=== PATIENT | female | born 1940 | race Caucasian/White ===

== ENCOUNTER → 2019-06-23 | Outpatient (CLI) | payer MEDICARE, OTHER ==
--- NOTE | 2019-06-23 15:18 | Diagnostic Imaging Report ---
CLINICAL INDICATION: Patient with degenerative disc disease. Exam: MRI of the lumbar spine performed without IV contrast. Sagittal T2, sagittal T1, sagittal T2 fat-sat, and axial T2. Comparison: None. FINDINGS: There is no acute lumbar spine fracture. There is small intraosseous hemangioma seen involving the T12 vertebra. There is hypertrophic spurs involving the lumbar spine and facet arthropathy. The visualized portions of the distal thoracic spinal cord, conus medullaris, and cauda equina nerve roots are unremarkable. The conus medullaris tip is seen at the L1-L2 intervertebral level. There is no significant paraspinal soft tissue abnormality. L1-L2: There is very subtle grade 1 retrolisthesis of L1 on L2. There is diffuse disc bulge with moderate loss of intervertebral disc height and chronic Schmorl's nodes. There is hypertrophic anterior disc spurs. There is mild bilateral facet arthropathy. There is minimal impression upon the thecal sac anteriorly. There is moderate right neural foramen narrowing and no significant left neural foramen narrowing. L2-L3: There is mild diffuse disc bulge with moderate right facet arthropathy and mild left facet arthropathy. There is mild ligamentum flavum buckling. There is no significant central canal narrowing. There is moderate bilateral neural foramen narrowing. L3-L4: There is diffuse disc bulge with disc spurs extending into the foraminal regions bilaterally. There is moderate to severe bilateral neural foramen narrowing. There is mild central canal narrowing with moderate bilateral facet arthropathy and ligamentum flavum buckling. L4-L5: There is a diffuse disc bulge with moderate loss of intervertebral disc height and moderate bilateral facet arthropathy and ligamentum flavum buckling. There is mild central canal narrowing. There is mild to moderate right neural foramen narrowing and moderate left neural foramen narrowing. L5-S1: There is moderate bilateral facet arthropathy/hypertrophy. There is diffuse disc bulge and mild loss of intervertebral disc height. There is mild bilateral neural foramen narrowing. There is no significant central canal narrowing. IMPRESSION: 1: There is multilevel lumbar spine degenerative disease, as described above. 2: There is subtle grade 1 retrolisthesis of L1 on L2. Dictated by: Dictated on workstation # [id number]
== END ==
LOC: RAD 13:38
PROVIDERS: ATTEND Nurse Practitioner Family
DX: M47.816 Spondylosis without myelopathy or radiculopathy, lumbar region (principal); M51.37 Other intervertebral disc degeneration, lumbosacral region; M43.16 Spondylolisthesis, lumbar region
CPT/HCPCS: 72148

== ENCOUNTER → 2020-11-29 | Outpatient (CLI) | payer MEDICARE, OTHER ==
--- NOTE | 2020-11-29 16:42 | Diagnostic Imaging Report ---
PROCEDURE: MRI lumbar spine. TECHNIQUE: Multiplanar, multisequence MRI of the lumbar spine was performed without contrast. INDICATION: Chronic low back pain. COMPARISON: Lumbar spine MRI from 06/23/2019. FINDINGS: No spondylolisthesis in the lumbar spine. Mild leftward curvature in the upper lumbar spine is unchanged. No fracture or marrow replacing process. No sacral insufficiency fracture or features of advanced interspinous degenerative change. Distal thoracic cord is normal in appearance. Mild fatty atrophy in the paravertebral musculature is similar to prior examination and likely from disuse. No concerning abnormality in the retroperitoneum. L1-L2: Diffuse disc bulge with loss of intervertebral height is unchanged. Mild bilateral facet osteoarthritis is also unchanged. No spinal stenosis. Moderate right neuroforaminal narrowing is unchanged. L2-L3: Diffuse disc bulge with intervertebral height loss is stable in appearance. Mild ligamentum flavum hypertrophy is similar. No spinal stenosis. Ovbg-rq-[id number] bilateral foraminal narrowing is unchanged. L3-L4: Diffuse disc bulge with facet osteoarthritis and ligamentum flavum hypertrophy, all remain unchanged. Mild spinal stenosis and [id number] bilateral neuroforaminal narrowing remain unchanged. L4-L5: Diffuse disc bulge, facet osteoarthritis and ligamentum flavum hypertrophy, all unchanged. This is asymmetrically advanced on the left and again causes mild spinal stenosis, mild right neuroforaminal narrowing and moderate left neuroforaminal narrowing. L5-S1: Disc bulge with facet osteoarthritis again causes mild bilateral neuroforaminal narrowing. No spinal stenosis. IMPRESSION: 1. No fracture in the lumbar spine. 2. Multilevel degenerative changes remain stable when compared to lumbar spine of 06/23/2019. Dictated by: Dictated on workstation # [id number]
== END ==
LOC: RAD 15:30
PROVIDERS: ATTEND Pain Medicine Interventional Pain Medicine
DX: M47.26 Other spondylosis with radiculopathy, lumbar region (principal); M51.16 Intervertebral disc disorders with radiculopathy, lumbar region; M48.061 Spinal stenosis, lumbar region without neurogenic claudication
CPT/HCPCS: 72148

== ENCOUNTER 2022-07-10 13:15 | Emergency (ER) | payer MEDICARE, OTHER ==
[~2022-07-10] VITALS: Ht 160 cm; Wt 81.0 kg
--- NOTE | 2022-07-10 13:23 | ED General ---
General Stated Complaint: DIZZINESS History of Present Illness Date Seen by Provider: Jul 10, 2022 Time Seen by Provider: 13:23 Initial Comments 81-year-old female [facility] for [facility]. Patient was sitting at the lunch table when she felt she got real dizzy, laid her head down on the table. Patient states that she has had a "foggy head" for a couple weeks. [facility] yesterday. Patient denies any focal weakness. She did have some mild nausea and received Zofran in route. [facility] was concerned about low oxygen reading however for EMS it was in the 90s and upon arrival for us is in the upper 90s. Patient is not complaining of any shortness of breath, chest pain, fever, chills, cough or other systemic complaints. Allergies and Home Medications Allergies Coded Allergies: acetaminophen (Verified Allergy, Unknown, 07/10/22) ciprofloxacin (Verified Allergy, Unknown, 07/10/22) loratadine (Verified Allergy, Unknown, 07/10/22) Patient Home Medication List Home Medication List Reviewed: Yes Review of Systems Review of Systems Constitutional: No chills, No fever; malaise EENTM: no symptoms reported Respiratory: see HPI; No cough, No short of breath Cardiovascular: No chest pain, No palpitations Gastrointestinal: No abdominal pain, No constipation, No diarrhea; nausea; No vomiting Genitourinary: no symptoms reported Musculoskeletal: no symptoms reported Skin: no symptoms reported Psychiatric/Neurological: See HPI Hematologic/Lymphatic: No Symptoms Reported Physical Exam Vital Signs Vital Signs - First Documented 07/10/22 13:28 Temp 36.7 Pulse 67 Resp 16 B/P (MAP) 139/76 (97) Pulse Ox 97 O2 Delivery Room Air Capillary Refill : Height, Weight, BMI Height: '" Weight: lbs. oz. kg; BMI Method: General Appearance: No Apparent Distress, WD/WN HEENT: PERRL/EOMI Neck: Non Tender, Supple Respiratory: Lungs Clear, Normal Breath Sounds Cardiovascular: Regular Rate, Rhythm, No Edema Extremity: Normal Capillary Refill, Normal Range of Motion Neurologic/Psychiatric: Alert, No Motor/Sensory Deficits, choreography director II-XII Norm as Tested Skin: Normal Color, Warm/Dry Progress/Results/Core Measures Suspected Sepsis SIRS Temperature: Pulse: Respiratory Rate: Laboratory Tests 07/10/22 13:35: White Blood Count 6.0 Blood Pressure / Mean: Laboratory Tests 07/10/22 13:35: Creatinine 0.63, Platelet Count 186, Total Bilirubin 0.5 Results/Orders Lab Results Laboratory Tests Test 07/10/22 13:33 07/10/22 13:35 Range/Units Urine Color YELLOW Urine Clarity CLEAR Urine pH 6.5 5-9 Urine Specific [place] <=1.005 1.016-1.022 Urine Protein NEGATIVE NEGATIVE Urine Glucose (UA) NEGATIVE NEGATIVE Urine Ketones NEGATIVE NEGATIVE Urine Nitrite NEGATIVE NEGATIVE Urine Bilirubin NEGATIVE NEGATIVE Urine Urobilinogen 0.2 < = 1.0 MG/DL Urine Leukocyte Esterase NEGATIVE NEGATIVE Urine RBC (Auto) TRACE-I H NEGATIVE Urine RBC RARE /HPF Urine WBC RARE /HPF Urine Squamous Epithelial Cells 0-2 /HPF Urine Crystals NONE /LPF Urine Bacteria NEGATIVE /HPF Urine Casts NONE /LPF Urine Mucus NEGATIVE /LPF Urine Culture Indicated NO SARS-CoV-2 RNA (RT-PCR) Not Detected Not Detecte White Blood Count 6.0 4.3-11.0 10^3/uL Red Blood Count 4.41 3.80-5.11 10^6/uL Hemoglobin 13.6 11.5-16.0 g/dL Hematocrit 41 35-52 % Mean Corpuscular Volume 92 80-99 fL Mean Corpuscular Hemoglobin 31 25-34 pg Mean Corpuscular Hemoglobin Concent 33 32-36 g/dL Red Cell Distribution Width 11.9 10.0-14.5 % Platelet Count 186 130-400 10^3/uL Mean Platelet Volume 12.6 H 9.0-12.2 fL Immature Granulocyte % (Auto) 0 % Neutrophils (%) (Auto) 62 42-75 % Lymphocytes (%) (Auto) 30 12-44 % Monocytes (%) (Auto) 6 0-12 % Eosinophils (%) (Auto) 1 0-10 % Basophils (%) (Auto) 1 0-10 % Neutrophils # (Auto) 3.7 1.8-7.8 10^3/uL Lymphocytes # (Auto) 1.8 1.0-4.0 10^3/uL Monocytes # (Auto) 0.4 0.0-1.0 10^3/uL Eosinophils # (Auto) 0.1 0.0-0.3 10^3/uL Basophils # (Auto) 0.0 0.0-0.1 10^3/uL Immature Granulocyte # (Auto) 0.0 0.0-0.1 10^3/uL Sodium Level 142 135-145 MMOL/L Potassium Level 3.9 3.6-5.0 MMOL/L Chloride Level 104 98-107 MMOL/L Carbon Dioxide Level 28 21-32 MMOL/L Anion Gap 10 5-14 MMOL/L Blood Urea Nitrogen 11 7-18 MG/DL Creatinine 0.63 0.60-1.30 MG/DL Estimat Glomerular Filtration Rate 89 BUN/Creatinine Ratio 17 Glucose Level 158 H 70-105 MG/DL Calcium Level 9.5 8.5-10.1 MG/DL Corrected Calcium 9.3 8.5-10.1 MG/DL Magnesium Level 2.2 1.6-2.4 MG/DL Total Bilirubin 0.5 0.1-1.0 MG/DL Aspartate Amino Transf (AST/SGOT) 20 5-34 U/L Alanine Aminotransferase (ALT/SGPT) 15 0-55 U/L Alkaline Phosphatase 80 40-136 U/L Total Protein 7.0 6.4-8.2 GM/DL Albumin 4.2 3.2-4.5 GM/DL My Orders Orders - BUCHANAN,JESSE L DO Ct Head Wo (07/10/22 13:24) Cbc With Automated Diff (07/10/22 13:24) Comprehensive Metabolic Panel (07/10/22 13:24) Magnesium (07/10/22 13:24) Ua Culture If Indicated (07/10/22 13:24) Covid 19 Inhouse Test (07/10/22 13:24) Ekg Tracing (07/10/22 13:24) Monitor-Rhythm Ecg Trace Only (07/10/22 13:24) Orthostatic Vital Signs (Adult (07/10/22 13:24) Chest 1 View Ap/Pa Only (07/10/22 13:24) Meclizine Tablet (Antivert Tablet) (07/10/22 13:30) Vital Signs/I&O 07/10/22 07/10/22 13:28 13:43 Temp 36.7 Pulse 67 64 64 88 Resp 16 B/P (MAP) 139/76 (97) 135/68 (90) 131/61 (84) 132/72 (92) Pulse Ox 97 O2 Delivery Room Air Capillary Refill : Progress Note : Progress Note Patient with no significant findings on physical exam. Patient with no acute findings on CT, chest x-ray, EKG, or labs. She does feel like the meclizine helped the dizziness little bit. I recommend she use meclizine as directed [id number]. She was complaining of a little bit of right ear discomfort but there is no significant fluid or changes noted on exam. Recommend she maybe try an antihistamine since she complains of some seasonal allergies. Patient was stable and discharged ECG Initial ECG Impression Date: Jul 10, 2022 Initial ECG Impression Time: 13:37 Initial ECG Rate: 62 Initial ECG Rhythm: Normal Sinus Initial ECG Intervals: QRS (76) Initial ECG Impression: Nonspecific Changes Comment No acute ST T elevation or depression Departure Impression Primary Impression: Dizziness Disposition: 01 HOME, SELF-CARE Condition: Stable Departure-Patient Inst. Referrals: NO,LOCAL PHYSICIAN (PCP/Family) Primary Care Physician Patient Instructions: Dizziness, Adult ED, Vertigo (a Type of Dizziness) Add. Discharge Instructions: Meclizine/Antivert use as directed on package Follow-up with your primary care provider next week if symptoms have not improve d throughout the weekend JESSE BUCHANAN DO Jul 10, 2022 13:23
[2022-07-10] MEDS ORDERED: MECLIZINE 25 MG (ANTIVERT) TAB PO ONE (13:30)
[2022-07-10 13:40] LABS: BILIRUBIN,URINE NEGATIVE (NEGATIVE); CLARITY,URINE CLEAR; COLOR,URINE YELLOW; GLUCOSE, URINE (UA) NEGATIVE (NEGATIVE); KETONES,URINE NEGATIVE (NEGATIVE); LEUKOCYTE ESTERASE ,URINE NEGATIVE (NEGATIVE); NITRITE,URINE NEGATIVE (NEGATIVE); PH,URINE 6.5 (5-9); PROTEIN,URINE NEGATIVE (NEGATIVE)
[2022-07-10 13:43] VITALS: BP_SYST 131; BP_SYST 132; BP_SYST 135; BP_DIAS 61; BP_DIAS 68; BP_DIAS 72
[2022-07-10 13:49] LABS: BACTERIA,URINE NEGATIVE /HPF; RBC,URINE RARE /HPF; SQUAMOUS EPITHELIAL CELL,UR 0-2 /HPF; WBC,URINE RARE /HPF
[2022-07-10 14:02] LABS: BASOPHILS % (AUTO) 1 % (0-10); EOSINOPHILS # (AUTO) 0.1 10^3/uL (0.0-0.3); EOSINOPHILS % (AUTO) 1 % (0-10); HEMATOCRIT 41 % (35-52); HEMOGLOBIN 13.6 g/dL (11.5-16.0); LYMPHOCYTES # (AUTO) 1.8 10^3/uL (1.0-4.0); LYMPHOCYTES % (AUTO) 30 % (12-44); MEAN CORPUSCULAR HEMOGLOBIN 31 pg (25-34); MEAN CORPUSCULAR HGB CONC 33 g/dL (32-36); MEAN CORPUSCULAR VOLUME 92 fL (80-99); MEAN PLATELET VOLUME 12.6 fL (9.0-12.2); MONOCYTES # (AUTO) 0.4 10^3/uL (0.0-1.0); MONOCYTES % (AUTO) 6 % (0-12); NEUTROPHILS # (AUTO) 3.7 10^3/uL (1.8-7.8); NEUTROPHILS % (AUTO) 62 % (42-75); PLATELET COUNT 186 10^3/uL (130-400)
[2022-07-10 14:06] LABS: CALCIUM 9.5 MG/DL (8.5-10.1); CREATININE SERUM 0.63 MG/DL (0.60-1.30); MAGNESIUM 2.2 MG/DL (1.6-2.4); POTASSIUM 3.9 MMOL/L (3.6-5.0)
[2022-07-10 14:07] LABS: ALBUMIN 4.2 GM/DL (3.2-4.5); BILIRUBIN,TOTAL 0.5 MG/DL (0.1-1.0)
--- NOTE | 2022-07-10 14:10 | Diagnostic Imaging Report ---
INDICATION: Dizziness. COMPARISON: None. FINDINGS: Single frontal radiographic view of the chest was obtained and shows normal cardiac silhouette. Pulmonary vasculature is mildly prominent. Calcified granuloma is noted projecting over the right upper lung. Lungs are otherwise clear. There is no large effusion or pneumothorax. Osseous structures show no gross acute abnormalities. IMPRESSION: 1. Mild vascular congestion. Dictated by: Dictated on workstation # [id number]
--- NOTE | 2022-07-10 14:20 | Diagnostic Imaging Report ---
PROCEDURE: CT head without contrast. TECHNIQUE: Multiple contiguous axial images were obtained through the brain without the use of intravenous contrast. Auto Exposure Controls were utilized during the CT exam to meet ALARA standards for radiation dose reduction. INDICATION: Dizziness. COMPARISON: No prior studies are available for comparison. FINDINGS: The ventricles and sulci are appropriate for the patient's age. There is no sulcal effacement or midline shift. No acute intra-axial or extra-axial hemorrhage is detected. The cisterns are patent. The visualized paranasal sinuses are clear. IMPRESSION: No acute intracranial process is detected. Dictated by: Dictated on workstation # [id number]
[2022-07-10 14:37] VITALS: BP 111/62
== END 2022-07-10 14:39 | disposition home or self-care (01) ==
LOC: EDUNIT# 13:15 → ER FS 13:16
DX: R42 Dizziness and giddiness (principal); Z20.822 Contact with and (suspected) exposure to COVID-19; Z28.310 Unvaccinated for COVID-19
CPT/HCPCS: 36415; 70450; 71045; 80053; 81000; 83735; 85025; 87636; 93005; 93041

== ENCOUNTER → 2022-08-15 | Outpatient (CLI) | payer MEDICARE, OTHER ==
[2022-08-15 09:45] LABS: ALBUMIN 4.2 GM/DL (3.2-4.5); BILIRUBIN,TOTAL 0.4 MG/DL (0.1-1.0); CALCIUM 9.8 MG/DL (8.5-10.1); CREATININE SERUM 0.71 MG/DL (0.60-1.30); POTASSIUM 4.5 MMOL/L (3.6-5.0); TOTAL PROTEIN 7.2 GM/DL (6.4-8.2)
== END ==
LOC: LAB FS 08:38
PROVIDERS: ATTEND Registered Nurse Emergency
DX: E03.9 Hypothyroidism, unspecified (principal); R35.0 Frequency of micturition; M25.511 Pain in right shoulder; Z68.31 Body mass index [BMI] 31.0-31.9, adult; M54.50 Low back pain, unspecified; E78.5 Hyperlipidemia, unspecified; Z71.89 Other specified counseling; R03.0 Elevated blood-pressure reading, without diagnosis of hypertension
CPT/HCPCS: 36415; 80053; 80061; 84443

== ENCOUNTER → 2022-08-27 | Outpatient (CLI) | payer MEDICARE, OTHER ==
--- NOTE | 2022-08-27 17:22 | Diagnostic Imaging Report ---
EXAMINATION: Right foot radiographs, 3 views. COMPARISON: None. HISTORY: 81-year-old female, right great toe pain. FINDINGS: There is severe joint space loss of the first metatarsophalangeal joint. There is cortical irregularity of the bones at this location. There is some osteophyte formation present. There is no identified soft tissue calcification. There is a very small calcaneal heel spur. There is no identified acute fracture. IMPRESSION: 1. 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 Cortical irregularity is noted. This may not necessarily reflects osteoarthritis. Crystalline or inflammatory arthropathy would be considered. Dictated by: Dictated on workstation # [id number]
== END ==
LOC: RAD FS 14:48
PROVIDERS: ATTEND Registered Nurse Emergency
DX: M19.011 Primary osteoarthritis, right shoulder (principal)
CPT/HCPCS: 73630

== ENCOUNTER → 2023-05-29 | Outpatient (CLI) | payer MEDICARE, OTHER ==
[2023-05-29 17:47] LABS: BILIRUBIN,URINE NEGATIVE (NEGATIVE); CLARITY,URINE CLEAR; COLOR,URINE YELLOW; GLUCOSE, URINE (UA) NEGATIVE (NEGATIVE); KETONES,URINE NEGATIVE (NEGATIVE); LEUKOCYTE ESTERASE ,URINE NEGATIVE (NEGATIVE); NITRITE,URINE NEGATIVE (NEGATIVE); PROTEIN,URINE NEGATIVE (NEGATIVE)
[2023-05-29 17:53] LABS: BACTERIA,URINE NEGATIVE /HPF; SQUAMOUS EPITHELIAL CELL,UR 0-2 /HPF
== END ==
LOC: PVFS 17:31
PROVIDERS: ATTEND Registered Nurse Emergency
DX: R41.82 Altered mental status, unspecified (principal); Z87.440 Personal history of urinary (tract) infections
CPT/HCPCS: 81000

== ENCOUNTER 2023-06-01 18:00 | Emergency (ER) | payer MEDICARE, OTHER ==
[2023-06-01 18:23] LABS: BILIRUBIN,URINE NEGATIVE (NEGATIVE); CLARITY,URINE CLEAR; COLOR,URINE YELLOW; GLUCOSE, URINE (UA) NEGATIVE (NEGATIVE); KETONES,URINE NEGATIVE (NEGATIVE); LEUKOCYTE ESTERASE ,URINE NEGATIVE (NEGATIVE); NITRITE,URINE NEGATIVE (NEGATIVE); PROTEIN,URINE NEGATIVE (NEGATIVE)
[2023-06-01 18:23] LABS: BASOPHILS # (AUTO) 0.1 10^3/uL (0.0-0.1); BASOPHILS % (AUTO) 1 % (0-10); EOSINOPHILS # (AUTO) 0.2 10^3/uL (0.0-0.3); EOSINOPHILS % (AUTO) 3 % (0-10); HEMATOCRIT 45 % (35-52); HEMOGLOBIN 14.3 g/dL (11.5-16.0); LYMPHOCYTES # (AUTO) 2.4 10^3/uL (1.0-4.0); LYMPHOCYTES % (AUTO) 29 % (12-44); MEAN CORPUSCULAR HEMOGLOBIN 31 pg (25-34); MEAN CORPUSCULAR HGB CONC 32 g/dL (32-36); MEAN CORPUSCULAR VOLUME 95 fL (80-99); MEAN PLATELET VOLUME 12.9 fL (9.0-12.2); MONOCYTES # (AUTO) 0.6 10^3/uL (0.0-1.0); MONOCYTES % (AUTO) 7 % (0-12); NEUTROPHILS # (AUTO) 4.9 10^3/uL (1.8-7.8); NEUTROPHILS % (AUTO) 60 % (42-75); PLATELET COUNT 180 10^3/uL (130-400); WHITE BLOOD COUNT 8.3 10^3/uL (4.3-11.0)
--- NOTE | 2023-06-01 18:23 | ED General ---
General Chief Complaint: Altered Mental Status Stated Complaint: AMS Source of Information: Patient Exam Limitations: No Limitations History of Present Illness Date Seen by Provider: Jun 01, 2023 Time Seen by Provider: 18:01 Initial Comments 82-year-old female with past medical history most notable for depression, hyperlipidemia, paroxysmal A-fib, and new diagnosis of dementia coming in due to altered mental status. Per the family member, this has been ongoing for several months, now worsening. She has had specific testing, and they are going to start her on medication soon for dementia. She has been more paranoid at times, does not believe she is at home, believes people are in her house. This occurred earlier today. Right now she does not feel that way, and she feels at her baseline. It tends to come and go at random times. She has not fallen or hit her head. She denies any pain anywhere, and she otherwise denies any other symptoms including any chest pain, shortness of breath, abdominal pain, nausea, vomiting, diarrhea, fever, chills, headache, vision changes, weakness, numbness, rash, dysuria, polyuria, or any other concerns. Allergies and Home Medications Allergies Coded Allergies: acetaminophen (Verified Allergy, Unknown, 07/10/22) ciprofloxacin (Verified Allergy, Unknown, 07/10/22) loratadine (Verified Allergy, Unknown, 07/10/22) Patient Home Medication List Home Medication List Reviewed: Yes Review of Systems Review of Systems Constitutional: No fever EENTM: no symptoms reported Respiratory: no symptoms reported Cardiovascular: no symptoms reported Gastrointestinal: no symptoms reported Genitourinary: no symptoms reported Musculoskeletal: no symptoms reported Skin: no symptoms reported Past Emsboey-Vilcjf-Vsndgt Hx Patient Social History Tobacco Use?: No Use of E-Cig and/or Vaping dev: No Substance use?: No Alcohol Use?: No Pt feels they are or have been: No Immunizations Up To Date First/Initial COVID19 Vaccinat: 2020 Second COVID19 Vaccination Shad: 2020 Third COVID19 Vaccination Date: 2021 Past Medical History Surgery/Hospitalization HX: DMII, GERD, A-FIB, OA, HYPERLIPIDEMIA, HYPOTHYROIDISM. Physical Exam Vital Signs Vital Signs - First Documented 06/01/23 18:05 Temp 36.3 Pulse 78 Resp 16 B/P (MAP) 143/59 (87) Pulse Ox 92 O2 Delivery Room Air Capillary Refill : Height, Weight, BMI Height: '" Weight: lbs. oz. kg; 31.00 BMI Method: General Appearance: No Apparent Distress, WD/WN Eyes: Bilateral Eye Normal Inspection, Bilateral Eye PERRL, Bilateral Eye EOMI HEENT: PERRL/EOMI, Normal ENT Inspection, Pharynx Normal Neck: Full Range of Motion, Normal Inspection, Non Tender, Supple Respiratory: Chest Non Tender, Lungs Clear, Normal Breath Sounds, No Accessory Muscle Use, No Respiratory Distress Cardiovascular: Regular Rate, Rhythm, No Edema, Normal Peripheral Pulses Gastrointestinal: Normal Bowel Sounds, Non Tender, Soft; No Distended, No Guarding Back: Normal Inspection, No CVA Tenderness, No Vertebral Tenderness Extremity: Normal Capillary Refill, Normal Inspection, Normal Range of Motion, Non Tender, No Calf Tenderness, No Pedal Edema Neurologic/Psychiatric: Alert, Oriented x3, No Motor/Sensory Deficits, Normal Mood/Affect, organizational research consultant II-XII Norm as Tested, Other (Normal gait, normal [id number], normal ezqb-ho-byfn, normal visual ruvalcaba and visual acuity, normal speech) Skin: Normal Color, Warm/Dry Progress/Results/Core Measures Suspected Sepsis SIRS Temperature: Pulse: Respiratory Rate: Laboratory Tests 06/01/23 18:10: White Blood Count 8.3 Blood Pressure / Mean: Laboratory Tests 06/01/23 18:10: Creatinine 0.76, Platelet Count 180, Total Bilirubin 0.2 Results/Orders Lab Results Laboratory Tests Test 06/01/23 18:03 06/01/23 18:10 06/01/23 18:13 Range/Units Urine Color YELLOW Urine Clarity CLEAR Urine pH 6.0 5-9 Urine Specific [place] 1.020 1.016-1.022 Urine Protein NEGATIVE NEGATIVE Urine Glucose (UA) NEGATIVE NEGATIVE Urine Ketones NEGATIVE NEGATIVE Urine Nitrite NEGATIVE NEGATIVE Urine Bilirubin NEGATIVE NEGATIVE Urine Urobilinogen 0.2 < = 1.0 MG/DL Urine Leukocyte Esterase NEGATIVE NEGATIVE Urine RBC (Auto) 2+ H NEGATIVE Urine RBC 5-10 H /HPF Urine WBC 2-5 /HPF Urine Squamous Epithelial Cells 25-50 H /HPF Urine Crystals NONE /LPF Urine Bacteria TRACE /HPF Urine Casts NONE /LPF Urine Mucus LARGE H /LPF Urine Culture Indicated NO Urine Opiates Screen NEGATIVE NEGATIVE Urine Oxycodone Screen NEGATIVE NEGATIVE Urine Methadone Screen NEGATIVE NEGATIVE Urine Propoxyphene Screen NEGATIVE NEGATIVE Urine Barbiturates Screen NEGATIVE NEGATIVE Ur Tricyclic Antidepressants Screen NEGATIVE NEGATIVE Urine Phencyclidine Screen NEGATIVE NEGATIVE Urine Amphetamines Screen NEGATIVE NEGATIVE Urine Methamphetamines Screen NEGATIVE NEGATIVE Urine Benzodiazepines Screen NEGATIVE NEGATIVE Urine Cocaine Screen NEGATIVE NEGATIVE Urine Cannabinoids Screen NEGATIVE NEGATIVE White Blood Count 8.3 4.3-11.0 10^3/uL Red Blood Count 4.69 3.80-5.11 10^6/uL Hemoglobin 14.3 11.5-16.0 g/dL Hematocrit 45 35-52 % Mean Corpuscular Volume 95 80-99 fL Mean Corpuscular Hemoglobin 31 25-34 pg Mean Corpuscular Hemoglobin Concent 32 32-36 g/dL Red Cell Distribution Width 11.9 10.0-14.5 % Platelet Count 180 130-400 10^3/uL Mean Platelet Volume 12.9 H 9.0-12.2 fL Immature Granulocyte % (Auto) 0 % Neutrophils (%) (Auto) 60 42-75 % Lymphocytes (%) (Auto) 29 12-44 % Monocytes (%) (Auto) 7 0-12 % Eosinophils (%) (Auto) 3 0-10 % Basophils (%) (Auto) 1 0-10 % Neutrophils # (Auto) 4.9 1.8-7.8 10^3/uL Lymphocytes # (Auto) 2.4 1.0-4.0 10^3/uL Monocytes # (Auto) 0.6 0.0-1.0 10^3/uL Eosinophils # (Auto) 0.2 0.0-0.3 10^3/uL Basophils # (Auto) 0.1 0.0-0.1 10^3/uL Immature Granulocyte # (Auto) 0.0 0.0-0.1 10^3/uL Sodium Level 140 135-145 MMOL/L Potassium Level 4.4 3.6-5.0 MMOL/L Chloride Level 101 98-107 MMOL/L Carbon Dioxide Level 28 21-32 MMOL/L Anion Gap 11 5-14 MMOL/L Blood Urea Nitrogen 10 7-18 MG/DL Creatinine 0.76 0.60-1.30 MG/DL Estimat Glomerular Filtration Rate 78 BUN/Creatinine Ratio 13 Glucose Level 153 H 70-105 MG/DL Calcium Level 10.0 8.5-10.1 MG/DL Corrected Calcium 9.8 8.5-10.1 MG/DL Magnesium Level 2.2 1.6-2.4 MG/DL Total Bilirubin 0.2 0.1-1.0 MG/DL Aspartate Amino Transf (AST/SGOT) 25 5-34 U/L Alanine Aminotransferase (ALT/SGPT) 22 0-55 U/L Alkaline Phosphatase 87 40-136 U/L Total Protein 7.1 6.4-8.2 GM/DL Albumin 4.3 3.2-4.5 GM/DL Serum Alcohol < 10 <10 MG/DL Glucometer 139 H 70-110 MG/DL My Orders Orders - GENE RODRÍGUEZ MD Alcohol (06/01/23 18:18) Cbc With Automated Diff (06/01/23 18:18) Comprehensive Metabolic Panel (06/01/23 18:18) Drug Screen Stat (Urine) (06/01/23 18:18) Magnesium (06/01/23 18:18) Ua Culture If Indicated (06/01/23 18:18) Accucheck Stat ONCE (06/01/23 18:18) Ed Iv/Invasive Line Start (06/01/23 18:18) Chest 1 View Ap/Pa Only (06/01/23 18:18) Thyroid Stimulating Hormone (06/01/23 18:10) Vital Signs/I&O 06/01/23 18:05 Temp 36.3 Pulse 78 Resp 16 B/P (MAP) 143/59 (87) Pulse Ox 92 O2 Delivery Room Air Capillary Refill : Progress Note : Progress Note 82-year-old female with above history coming in due to altered mental status. ABCs were intact and vitals were stable on presentation. Physical exam including a comprehensive neuro exam was normal. Accu-Chek with a glucose around 120 which is reassuring. An IV was placed and basic labs were obtained. Sodium is normal, creatinine normal, LFTs normal, she is not anemic, TSH pending. Urinalysis negative for infection, likely contaminated source as well. She had an MRI of the brain relatively recently, CT would likely not yield anything new given she has not had any traumatic injuries. Chest x-ray ordered and interpreted by me showing no obvious pneumonia, no pneumothorax, normal cardiac silhouette, overall appears similar to prior. Most importantly, the patient is at her baseline. This seems more consistent with sundowning of some kind with her new diagnosis of dementia. I will have her continue to follow-up with her PCP. Diagnostic Imaging Diagonstic Imaging: Xray (chest) Departure Impression Primary Impression: AMS (altered mental status) Qualified Codes: R40.4 - Transient alteration of awareness Additional Impression: Dementia Qualified Codes: F03.A18 - Unspecified dementia, mild, with other behavioral disturbance Disposition: 01 HOME, SELF-CARE Condition: Stable Departure-Patient Inst. Decision time for Depature: 18:55 Referrals: JOSIAH RANKIN MD (PCP) Primary Care Physician Patient Instructions: Dementia ED, Delirium (Confusion) (DC) Add. Discharge Instructions: This is likely related to delirium and dementia. Delirium is something that comes and goes at random times, and things that can improve it are family involvement, pictures around the house, and frequent reorientation with where she is at. Continue to have her follow-up with your primary care provider to see if they need to change any other medications. GENE RODRÍGUEZ MD Jun 01, 2023 18:23
[2023-06-01 18:27] LABS: BACTERIA,URINE TRACE /HPF; SQUAMOUS EPITHELIAL CELL,UR 25-50 /HPF
[2023-06-01 18:34] LABS: AMPHETAMINE SCREEN, URINE NEGATIVE (NEGATIVE); BARBITURATE SCREEN URINE NEGATIVE (NEGATIVE); BENZODIAZEPINES SCREEN URINE NEGATIVE (NEGATIVE); CANNABINOID SCREEN, URINE NEGATIVE (NEGATIVE); COCAINE SCREEN URINE NEGATIVE (NEGATIVE); METHADONE STAT NEGATIVE (NEGATIVE); OPIATE SCREEN URINE NEGATIVE (NEGATIVE); OXYCODONE STAT NEGATIVE (NEGATIVE); PROPOXYPHENE STAT NEGATIVE (NEGATIVE); TRICYCLIC ANTIDEPRESSANTS SCRE NEGATIVE (NEGATIVE)
[2023-06-01 18:35] LABS: ALANINE AMINOTRANSFERASE 22 U/L (0-55); ALBUMIN 4.3 GM/DL (3.2-4.5); ALKALINE PHOSPHATASE 87 U/L (40-136); BILIRUBIN,TOTAL 0.2 MG/DL (0.1-1.0); BUN/CREATININE RATIO 13; CARBON DIOXIDE 28 MMOL/L (21-32); CHLORIDE 101 MMOL/L (98-107); CREATININE SERUM 0.76 MG/DL (0.60-1.30); GFR ESTIMATED 78; GLUCOSE 153 MG/DL (70-105); MAGNESIUM 2.2 MG/DL (1.6-2.4); POTASSIUM 4.4 MMOL/L (3.6-5.0); SODIUM 140 MMOL/L (135-145); TOTAL PROTEIN 7.1 GM/DL (6.4-8.2)
--- NOTE | 2023-06-01 18:52 | Diagnostic Imaging Report ---
EXAMINATION: Chest 1 view. HISTORY: AMS. COMPARISON: 07/10/2022. FINDINGS: Heart size and pulmonary vasculature are normal. Trace bilateral pleural effusions or pleural thickening. Stable mild atelectasis or scarring in the lung bases. Scattered calcified granulomas. No new consolidation or pneumothorax. Degenerative changes of the thoracic spine. Osseous structures are otherwise intact. IMPRESSION: No acute radiographic abnormality in the chest. Dictated by: Dictated on workstation # [id number]
[2023-06-01 18:53] VITALS: BP 143/59
== END 2023-06-01 18:54 | disposition home or self-care (01) ==
LOC: EDUNIT# 18:00 → ER FS 18:01
DX: R41.82 Altered mental status, unspecified (principal); F03.90 Unspecified dementia, unspecified severity, without behavioral disturbance, psychotic disturbance, mood disturbance, and anxiety
CPT/HCPCS: 36415; 71045; 80053; 80306; 81000; 82947; 83735; 84443; 85025; 99284; G0480; 80320

== ENCOUNTER → 2023-08-05 | Outpatient (CLI) | payer MEDICARE, OTHER ==
--- NOTE | 2023-08-05 18:27 | Diagnostic Imaging Report ---
INDICATION: Falls with left rib pain AP and oblique views of the left ribs are obtained. There is no pneumothorax or pleural fluid. The left ribs appear intact with no overt fracture. IMPRESSION: Negative left ribs. Dictated by: Dictated on workstation # [id number]
== END ==
LOC: RAD 15:03
PROVIDERS: ATTEND Nurse Practitioner
DX: R07.81 Pleurodynia (principal)
CPT/HCPCS: 71100

== ENCOUNTER 2023-08-07 11:24 | Emergency (ER) | payer MEDICARE, OTHER ==
[~2023-08-07] VITALS: Ht 152.4 cm; Wt 83.4 kg
--- NOTE | 2023-08-07 11:50 | ED Cardiac General ---
History of Present Illness General Chief Complaint: Dizziness/Syncope Stated Complaint: LOW PULSE | HIGH BLOOD PRESSURE Nursing Triage Note: PT TO ROOM 03 VIA W/C WITH C/O DIZZYNESS "FOR WEEKS", LOW BACK PAIN "FOR A LONG TIME" AND ABNORMAL VITAL SIGNS. PT SEND FROM [facility] FOR LOW PULSE OF 49-50 WITH DIZZYNESS AND CONFUSION. PT A/O X4 UPON ARRIVAL. Source: patient Exam Limitations: no limitations History of Present Illness Date Seen by Provider: Aug 07, 2023 Time Seen by Provider: 11:33 Initial Comments 82-year-old female presents to the ER for bradycardia and hypertension. She states that she was at the hospital today to get a steroid injection for her back, they did not want to do the injection because her blood pressure was elevated and her heart rate was low. Patient denies history of hypertension, states she does not take any medications for hypertension. Reports that the last few days she has had severe dizziness, describes it as the room is spinning. Patient states her dizziness is worse with movement. She does take meclizine as needed for vertigo. States that she has been taking it, reports that it helps, but the dizziness soon returns. She denies headache, chest pain, shortness of air. Patient does atenolol 25 mg, for atrial fibrillation. She also has hypothyroidism, and is on levothyroxine. Allergies and Home Medications Allergies Coded Allergies: acetaminophen (Verified Allergy, Unknown, 07/10/22) ciprofloxacin (Verified Allergy, Unknown, 07/10/22) loratadine (Verified Allergy, Unknown, 07/10/22) Patient Home Medication List Home Medication List Reviewed: Yes Review of Systems Review of Systems Constitutional: see HPI Past Inlvsnr-Hqmgdx-Yszabj Hx Patient Social History Tobacco Use?: No Smoking Status: Never a Smoker Smokeless Tobacco Frequency: Never a User Use of E-Cig and/or Vaping dev: No Use of E-Cig and/or Vaping Alejandro: Never a User Substance use?: No Alcohol Use?: No Pt feels they are or have been: No Immunizations Up To Date First/Initial COVID19 Vaccinat: 2020 Second COVID19 Vaccination Shad: 2020 Third COVID19 Vaccination Date: 2021 Past Medical History Surgery/Hospitalization HX: DMII, GERD, A-FIB, OA, HYPERLIPIDEMIA, HYPOTHYROIDISM. Physical Exam Vital Signs Vital Signs - First Documented 08/07/23 11:31 Temp 36.4 Pulse 52 Resp 20 B/P (MAP) 190/77 (114) O2 Delivery Room Air Capillary Refill : Less Than 3 Seconds Height, Weight, BMI Height: '" Weight: lbs. oz. kg; 35.00 BMI Method: General Appearance: No Apparent Distress, WD/WN Neck: Normal Inspection, Supple Respiratory: Lungs Clear, Normal Breath Sounds, No Accessory Muscle Use, No Respiratory Distress Cardiovascular: Bradycardia Extremity: Normal Inspection, Normal Range of Motion Neurologic/Psychiatric: Alert, Normal Mood/Affect Skin: Normal Color, Warm/Dry Progress/Results/Core Measures Results/Orders Lab Results Laboratory Tests Test 08/07/23 11:39 Range/Units White Blood Count 7.5 4.3-11.0 10^3/uL Red Blood Count 4.49 3.80-5.11 10^6/uL Hemoglobin 14.0 11.5-16.0 g/dL Hematocrit 43 35-52 % Mean Corpuscular Volume 95 80-99 fL Mean Corpuscular Hemoglobin 31 25-34 pg Mean Corpuscular Hemoglobin Concent 33 32-36 g/dL Red Cell Distribution Width 12.0 10.0-14.5 % Platelet Count 169 130-400 10^3/uL Mean Platelet Volume 12.9 H 9.0-12.2 fL Immature Granulocyte % (Auto) 0 % Neutrophils (%) (Auto) 62 42-75 % Lymphocytes (%) (Auto) 27 12-44 % Monocytes (%) (Auto) 8 0-12 % Eosinophils (%) (Auto) 3 0-10 % Basophils (%) (Auto) 1 0-10 % Neutrophils # (Auto) 4.7 1.8-7.8 10^3/uL Lymphocytes # (Auto) 2.0 1.0-4.0 10^3/uL Monocytes # (Auto) 0.6 0.0-1.0 10^3/uL Eosinophils # (Auto) 0.2 0.0-0.3 10^3/uL Basophils # (Auto) 0.1 0.0-0.1 10^3/uL Immature Granulocyte # (Auto) 0.0 0.0-0.1 10^3/uL Prothrombin Time 13.1 12.2-14.7 SEC INR Comment 1.0 0.8-1.4 Activated Partial Thromboplast Time 32 24-35 SEC Sodium Level 139 135-145 MMOL/L Potassium Level 4.1 3.6-5.0 MMOL/L Chloride Level 108 H 98-107 MMOL/L Carbon Dioxide Level 21 21-32 MMOL/L Anion Gap 10 5-14 MMOL/L Blood Urea Nitrogen 11 7-18 MG/DL Creatinine 0.79 0.60-1.30 MG/DL Estimat Glomerular Filtration Rate 75 BUN/Creatinine Ratio 14 Glucose Level 124 H 70-105 MG/DL Calcium Level 9.2 8.5-10.1 MG/DL Corrected Calcium 9.1 8.5-10.1 MG/DL Magnesium Level 2.2 1.6-2.4 MG/DL Total Bilirubin 0.5 0.1-1.0 MG/DL Aspartate Amino Transf (AST/SGOT) 22 5-34 U/L Alanine Aminotransferase (ALT/SGPT) 15 0-55 U/L Alkaline Phosphatase 61 40-136 U/L Troponin I < 0.028 <0.028 NG/ML Total Protein 7.2 6.4-8.2 GM/DL Albumin 4.1 3.2-4.5 GM/DL TSH [place] Testing 1.98 0.35-4.94 UIU/ML My Orders Orders - MADELYN PEMBERTON APRN Ekg Tracing (08/07/23 11:33) Cbc And Automated Diff (08/07/23 11:44) Magnesium (08/07/23 11:44) Comprehensive Metabolic Panel (08/07/23 11:44) Protime With Inr (08/07/23 11:44) Partial Thromboplastin Time (08/07/23 11:44) Monitor-Rhythm Ecg Trace Only (08/07/23 11:44) Ed Iv/Invasive Line Start (08/07/23 11:44) Thyroid Analyzer (08/07/23 11:44) Hydralazine Injection (Hydralazine Injec (08/07/23 11:45) Troponin I [place] (08/07/23 12:01) Vital Signs/I&O 08/07/23 11:31 Temp 36.4 Pulse 52 Resp 20 B/P (MAP) 190/77 (114) O2 Delivery Room Air Blood Pressure Mean: 114 Progress Progress Note : Progress Note Patient seen and evaluated, resting comfortably in bed, no acute distress. Based on exam and symptoms, work-up initially included CBC, CMP, thyroid analyzer, EKG. Hydralazine ordered for hypertension. 1204 blood pressure improved without intervention. Patient reports that her vertigo improved after her blood pressure improved. Troponin added on due to changes on EKG. Changes included new T wave inversion in lead V1, V2, V3, V4, V5, V6. 1315 Labs reviewed. CBC grossly normal. CMP shows slightly elevated chloride 108. Magnesium normal. Troponin negative. TSH normal 1.89. Coags normal. Results discussed with patient. Patient's vertigo improved when blood pressure improved. Patient instructed to keep a log of blood pressures and pulse and to follow-up with her primary care provider regarding the use vital signs. Patient is stable for discharge. Discharge instructions and return precautions provided. Initial ECG Impression Date: Aug 07, 2023 Initial ECG Impression Time: 11:50 Initial ECG Rate: 45 Initial ECG Rhythm: S.Imtiaz Initial ECG Intervals: Normal Initial ECG Impression: Nonspecific Changes Initial ECG Comparisson: Changed Comment New T wave inversions in V1, V2, V3, V4, V5, V6. Q wave in lead III which was present on previous EKG, no ST elevation. Departure Impression Primary Impression: Vertigo Additional Impressions: Bradycardia Elevated blood pressure reading Disposition: 01 HOME, SELF-CARE Condition: Stable Departure-Patient Inst. Decision time for Depature: 13:16 Referrals: JOSIAH RANKIN MD (PCP/Family) Primary Care Physician Patient Instructions: Heart Healthy Diet Add. Discharge Instructions: Have the nursing staff check your blood pressure and pulse twice a day and keep a log. Follow-up with your primary care provider, bring the blood pressure and pulse logs with you. Your primary care provider may need to adjust your medications. If you become dizzy, have the nurses have checked your blood pressure and pulse. At this time, continue taking your medications as prescribed. Take your meclizine as needed for vertigo. Return for severe dizziness, weakness on one side your body, significantly elevated blood pressure with headache, dizziness, or blurred vision, or any other new, concerning, or worsening symptoms. All discharge instructions reviewed with patient and/or family. Voiced understanding. Copy Copies To 1: JOSIAH RANKIN MD, BRITTANY R APRN Aug 07, 2023 11:50
[2023-08-07 11:51] LABS: BASOPHILS # (AUTO) 0.1 10^3/uL (0.0-0.1); BASOPHILS % (AUTO) 1 % (0-10); EOSINOPHILS # (AUTO) 0.2 10^3/uL (0.0-0.3); EOSINOPHILS % (AUTO) 3 % (0-10); HEMATOCRIT 43 % (35-52); LYMPHOCYTES % (AUTO) 27 % (12-44); MEAN CORPUSCULAR HEMOGLOBIN 31 pg (25-34); MEAN CORPUSCULAR HGB CONC 33 g/dL (32-36); MEAN CORPUSCULAR VOLUME 95 fL (80-99); MEAN PLATELET VOLUME 12.9 fL (9.0-12.2); MONOCYTES # (AUTO) 0.6 10^3/uL (0.0-1.0); MONOCYTES % (AUTO) 8 % (0-12); NEUTROPHILS # (AUTO) 4.7 10^3/uL (1.8-7.8); NEUTROPHILS % (AUTO) 62 % (42-75); PLATELET COUNT 169 10^3/uL (130-400); WHITE BLOOD COUNT 7.5 10^3/uL (4.3-11.0)
[2023-08-07 11:56] LABS: ALBUMIN 4.1 GM/DL (3.2-4.5); POTASSIUM 4.1 MMOL/L (3.6-5.0)
[2023-08-07 11:57] LABS: CALCIUM 9.2 MG/DL (8.5-10.1)
[2023-08-07 11:58] LABS: PROTHROMBIN TIME PATIENT 13.1 SEC (12.2-14.7); TOTAL PROTEIN 7.2 GM/DL (6.4-8.2)
[2023-08-07 12:00] LABS: BILIRUBIN,TOTAL 0.5 MG/DL (0.1-1.0)
[2023-08-07] MEDS: hydrALAZINE INJECTION 20 MG/ML VIAL IV ONE (12:00)
[2023-08-07 12:02] LABS: CREATININE SERUM 0.79 MG/DL (0.60-1.30)
[2023-08-07 12:04] LABS: MAGNESIUM 2.2 MG/DL (1.6-2.4)
[2023-08-07 12:25] LABS: TSH (THYROID ANALYZER) 1.98 UIU/ML (0.35-4.94)
[2023-08-07 13:28] VITALS: BP 144/80
== END 2023-08-07 13:27 | disposition home or self-care (01) ==
LOC: EDUNIT# 11:24 → ER 11:26
DX: R42 Dizziness and giddiness (principal); R00.1 Bradycardia, unspecified; R03.0 Elevated blood-pressure reading, without diagnosis of hypertension; E03.9 Hypothyroidism, unspecified; I48.91 Unspecified atrial fibrillation; Z79.890 Hormone replacement therapy; Z79.899 Other long term (current) drug therapy
CPT/HCPCS: 36415; 80053; 83735; 84443; 84484; 85025; 85610; 85730; 93005; 93041

== ENCOUNTER → 2023-09-04 | Outpatient (CLI) | payer MEDICARE, OTHER | LOC: CARD 11:34 | PROVIDERS: ATTEND Registered Nurse Emergency | DX: R00.1 Bradycardia, unspecified (principal); R00.2 Palpitations | CPT/HCPCS: 93225; 93226 ==